=== PATIENT | female | born 1990 | race Caucasian/White ===

== ENCOUNTER 2020-05-27 02:15 | Inpatient (IN) | payer BC ==
[2020-05-27] MEDS ORDERED: HYDROcodone/Acetaminophen 5/325 mg Tablet PO PRN (02:43)
[2020-05-27] MEDS ORDERED: Ibuprofen 800 MG TAB PO PRN (02:43)
[2020-05-27] MEDS ORDERED: hydrALAZINE 20 MG/ML VIAL SLOW IVP PRN ×2 (02:43→15:12)
[2020-05-27] MEDS ORDERED: Lidocaine 1% (PF) 30 ML VIAL SC PRN (02:43)
[2020-05-27] MEDS ORDERED: Butorphanol Tartrate 1 MG/ML VIAL SLOW IVP PRN (02:43)
[2020-05-27] MEDS ORDERED: NS / Oxytocin 40 units/1000ml 1,000 ML IV PRN (02:43)
[2020-05-27] MEDS ORDERED: Ondansetron PF 4 MG/2 ML Vial IVP PRN ×3 (02:43→15:12)
[2020-05-27] MEDS ORDERED: Lactated Ringer's 1,000 ML IV SCH (02:45)
[2020-05-27 03:22] VITALS: BMI 31.7
[2020-05-27 03:53] LABS: Hemoglobin 13.3 g/dL (12.0-16.0); Mean Corpuscular HGB CONC 35.4 g/dL (32.0-36.0); Mean Corpuscular Hemoglobin 34.5 pg (27.0-31.0); Mean Corpuscular Volume 97.6 fL (78.0-98.0); Mean Platelet Volume 10.1 fL (7.4-10.4); Platelet Count 142 thou/uL (130-400); RBC Distribution Width 11.8 % (11.5-14.5); Red Blood Cell (RBC) Count 3.86 mill/uL (4.20-5.40); White Blood Cell (WBC) Count 11.1 thou/uL (4.8-10.8)
[2020-05-27 04:32] LABS: HBSAg Index 0.18 S/CO (0-0.99); Hep B Surf Ag Non-Reactive S/CO (NonReactive); Syphilis Antibody Nonreactive (Nonreactive); Syphilis Antibody Index 0.02 S/CO (<1.00 Non-Reactive)
[2020-05-27] MEDS ORDERED: Fentanyl 4 mcg/Bup 0.1% Cadd 0 ML ONE (04:55)
[2020-05-27] MEDS ORDERED: Fentanyl 4 mcg/Bup 0.1% Cadd 100 ML ONE ×2 (04:55→12:38)
[2020-05-27] MEDS: Lactated Ringer's 1,000 ML IV SCH ×2 (05:00→15:11)
[2020-05-27] MEDS ORDERED: diphenhydrAMINE 50 MG/ML VIAL IVP PRN (05:48)
[2020-05-27] MEDS ORDERED: Acetaminophen 325 MG TAB PO PRN (05:48)
[2020-05-27] MEDS ORDERED: EPHEDRINE 25 MG/5 ML SYRINGE SLOW IVP PRN (05:48)
[2020-05-27] MEDS ORDERED: Promethazine HCl 25 MG/ML VIAL IM PRN ×2 (05:48→15:12)
[2020-05-27] MEDS ORDERED: Lactated Ringer's 500 ML IV PRN (05:48)
[2020-05-27] MEDS ORDERED: Naloxone HCl 0.4 mg/ml Vial IVP PRN ×2 (05:48)
[2020-05-27] MEDS ORDERED: Fentanyl 4 mcg/Bupivacaine 0.1% Cassette 100 ML EPIDURAL SCH (06:00)
[2020-05-27] MEDS ORDERED: Communication Order-Pharmacy FS SCH (06:00)
[2020-05-27] MEDS ORDERED: Oxytocin 10 UNITS/ML VIAL ONE (07:10)
[2020-05-27] MEDS ORDERED: NS w/ Oxytocin 10 units 500 ML ONE (07:10)
[2020-05-27] MEDS ORDERED: NS w/ Oxytocin 10 units 500 ML IV SCH (07:45)
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
--- NOTE | 2020-05-27 11:35 | PDOC.LDPN ---
Labor & Delivery Progress Note - Subjective Subjective: comfortable, vaginal pressure - Objective Vital signs reviewed and normal: yes General: NAD Plan: continue plan of care -: # Term IUP Pt currently has anterior lip of cervix remaining. She has an epidural and comfortable. Endorses only vaginal pressure. 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 Twiladay[employer]ile's article on VTE prophylaxis in non-orthopedic procedures places this patient at a medium risk for VTE due to prior occurrence, - it is noted ASA has been used by practitioners in the setting of non-orthopedic procedures w/o significant evidence for or against. Based on this information, pt's IVC placement, and discussion with pt we will add ASA 100 mg, 12 hours after delivery to decrease risk of VTE. Dispo: continue current plan
[2020-05-27] MEDS ORDERED: Bupivacaine/Epinephrine 0.25% 30 ML VIAL ONE (12:42)
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
[2020-05-27] MEDS ORDERED: Milk Of Magnesia 30 ML UDCUP PO PRN (15:12)
[2020-05-27] MEDS ORDERED: Lanolin Ointment 7 GM TUBE TOP PRN (15:12)
[2020-05-27] MEDS ORDERED: Preparation H Ointment 28 GM TUBE PR PRN (15:12)
[2020-05-27] MEDS ORDERED: Bisacodyl 10 MG SUPP PR PRN (15:12)
[2020-05-27] MEDS ORDERED: NS / Oxytocin 40 units/1000ml 1,000 ML IV SCH (15:12)
[2020-05-27] MEDS ORDERED: Benzocaine-Menthol 82.5 ML CAN TOP PRN (15:12)
[2020-05-27] MEDS: Ibuprofen 800 MG TAB PO SCH ×2 (15:29→21:32)
[2020-05-27] MEDS: Ferrous Sulfate 325 MG TAB PO SCH (17:31)
[2020-05-27] MEDS: Docusate Calcium (SURFAK) 240 MG CAP PO SCH (21:32)
[2020-05-28] MEDS: Ibuprofen 800 MG TAB PO SCH ×3 (05:26→21:34)
--- NOTE | 2020-05-28 06:27 | PDOC.PP ---
Post Progress Note Post Day #: 1 Subjective: Doing well, states no real discomfort PO intake tolerated: yes Flatus: yes Ambulation: yes Vital Signs (12 hours) Temp Pulse Resp BP Pulse Ox 05/28/20 05:20 98.6 F 84 16 118/64 05/28/20 00:40 98.6 F 100 16 128/66 05/27/20 21:00 98.6 F 92 16 112/60 97 Weight Weight 215 lb - Physical Examination General: NAD Respiratory: non-labored breathing Abdominal: no distention, appropriately TTP Extremities: negative homans (B) Neurological: no gross focal deficits Psychiatric: A&Ox3, normal affect Result Diagrams: 05/27/20 03:36 Additional Labs: Post Labs Blood Type O POSITIVE 05/27/20 04:28 Hep Bs Antigen Non-Reactive S/CO (NonReactive) 05/27/20 03:36 (1) Vaginal delivery Code(s): O80 - ENCOUNTER FOR FULL-TERM UNCOMPLICATED DELIVERY Status: Acute - Assessment/Plan PPD1 doing well. Likely home tomorrow AM on PPD2
[2020-05-28] MEDS: Aspirin 81 mg Enteric Coated Tablet PO SCH (08:39)
[2020-05-28] MEDS: Prenatal Vitamin 1 TAB PO SCH (08:39)
[2020-05-28] MEDS: Docusate Calcium (SURFAK) 240 MG CAP PO SCH ×2 (08:39→21:34)
[2020-05-28] MEDS: Ferrous Sulfate 325 MG TAB PO SCH ×2 (08:40→14:23)
[2020-05-28] MEDS ORDERED: Adacel (T-DAP) 0.5 ML SYRINGE IM ONE (09:00)
[2020-05-29] MEDS: Ibuprofen 800 MG TAB PO SCH (05:21)
--- NOTE | 2020-05-29 08:01 | PDOC.PP ---
Post Progress Note Post Day #: 2 Subjective: doing well, pumping and BF, no concerns PO intake tolerated: yes Flatus: yes Ambulation: yes Vital Signs (12 hours) Pulse Resp BP 05/29/20 00:00 74 16 131/78 Weight Weight 215 lb - Physical Examination General: NAD Respiratory: non-labored breathing Fundus firm & at: below umb Skin: no rash Neurological: no gross focal deficits Psychiatric: A&Ox3, normal affect Result Diagrams: 05/27/20 03:36 Additional Labs: Post Labs Blood Type O POSITIVE 05/27/20 04:28 Hep Bs Antigen Non-Reactive S/CO (NonReactive) 05/27/20 03:36 (1) Vaginal delivery Code(s): O80 - ENCOUNTER FOR FULL-TERM UNCOMPLICATED DELIVERY Status: Acute
[2020-05-29] MEDS: Ferrous Sulfate 325 MG TAB PO SCH (09:35)
[2020-05-29] MEDS: Docusate Calcium (SURFAK) 240 MG CAP PO SCH (09:52)
[2020-05-29] MEDS: Aspirin 81 mg Enteric Coated Tablet PO SCH (09:52)
[2020-05-29] MEDS: Prenatal Vitamin 1 TAB PO SCH (09:52)
[2020-05-29 13:38] VITALS: BP 134/81; TEMP 98.2
== END 2020-05-29 13:35 | disposition home or self-care (01) | DRG 807 ==
LOC: L&D/OP 02:15 → L&D 02:46 → 3SW 16:34
PROVIDERS: ADMIT Obstetrics & Gynecology; ATTEND Obstetrics & Gynecology
PROC: 10E0XZZ Delivery of Products of Conception, External Approach (ICD-10-PCS; principal; 2020-05-27)
PROC: 0KQM0ZZ Repair Perineum Muscle, Open Approach (ICD-10-PCS; 2020-05-27)
DX: O69.81X0 Labor and delivery complicated by cord around neck, without compression, not applicable or unspecified (principal); O70.1 Second degree perineal laceration during delivery; Z37.0 Single live birth; Z86.718 Personal history of other venous thrombosis and embolism; Z3A.38 38 weeks gestation of pregnancy
CPT/HCPCS: 36415; 85027; 86780; 86850; 86900; 86901; 87340; J2590